=== PATIENT | female | born 1970 | race Two or more races ===

== ENCOUNTER 2016-08-09 19:06 | Emergency (ER) | payer OTHER ==
[2016-08-09] MEDS ORDERED: IBUPROFEN 600 MG TAB PO ONE (19:22)
--- NOTE | 2016-08-09 19:25 | EDPHY ---
H & P Stated Complaint: Headache Time Seen by Provider: 08/09/16 19:25 HPI/ROS: CHIEF COMPLAINT: Headache HISTORY OF PRESENT ILLNESS: The patient presents to the ED with a 2 day history of a right-sided retro-orbital headache. The patient has had a history of this headache intermittently for the past year. The patient has had a negative head CT within the past 3 months for similar symptoms. The patient denies any recent fall or trauma. The patient is not anticoagulated. The patient has been taking ibuprofen at home without improvement. The patient denies any focal numbness or weakness. The patient denies any acute abdominal pain. The patient does have a history of multiple hospitalizations surrounding chronic abdominal pain and postoperative ileus. The patient denies any acute urinary complaints. She has no additional infectious complaints. REVIEW OF SYSTEMS: A comprehensive 10 point review of systems is otherwise negative aside from elements mentioned in the history of present illness. Source: Patient Exam Limitations: No limitations - Personal History Current Tetanus/Diphtheria Vaccine: Yes Current Tetanus Diphtheria and Acellular Pertussis (TDAP): Yes Tetanus Vaccine Date: less than 10 yrs - Medical/Surgical History Hx Asthma: No Hx Chronic Respiratory Disease: No Hx Diabetes: Yes Hx Cardiac Disease: No Hx Renal Disease: No Hx Cirrhosis: No Hx Alcoholism: No Hx HIV/AIDS: No Hx Splenectomy or Spleen Trauma: No Other PMH: Cholecystectomy, sphincterotomy dysfunction, small bowel traction, gastritis, migraines, pancreatitis, - Social History Smoking Status: Never smoked - Physical Exam Exam: General Appearance: Alert, mild discomfort secondary to pain Eyes: Pupils equal and round no pallor or injection ENT, Mouth: Mucous membranes moist Respiratory: There are no retractions, lungs are clear to auscultation Cardiovascular: Regular rate and rhythm Gastrointestinal: Abdomen is soft and nontender, no masses, bowel sounds normal Neurological: Alert and oriented x4, 5/5 strength noted all 4 extremities, cranial nerves 2-12 intact Skin: Warm and dry, no rashes Musculoskeletal: Neck is supple nontender Extremities: symmetrical, full range of motion Constitutional: Initial Vital Signs Temperature (C) 36.9 C 08/09/16 19:20 Heart Rate 92 08/09/16 19:20 Respiratory Rate 14 08/09/16 19:20 Blood Pressure 122/79 H 08/09/16 19:20 O2 Sat (%) 94 08/09/16 19:20 O2 Delivery Mode Room Air Allergies/Adverse Reactions: No Known Allergies Allergy (Verified 07/19/16 19:49) Home Medications: Medication Instructions Recorded Docusate Sodium [Colace] 100 - 200 mg PO BID PRN 08/20/15 Omeprazole 20 mg PO BIDMEAL 08/20/15 metFORMIN HCL [Glucophage] 500 mg PO BIDMEAL 08/20/15 Hydrocodone/APAP 5/325 [[place] 1 - 2 tab PO Q4H PRN #10 tab 01/05/16 5/325] Atorvastatin Calcium 20 mg PO 07/19/16 Cyclobenzaprine [Flexeril 10 MG 10 mg PO TID 07/19/16 (*)] Linagliptin [Tradjenta] 5 mg PO 07/19/16 oxyCODONE IR [Oxycodone Ir (*)] 5 mg PO Q8 PRN #3 tab 07/19/16 Hydrocodone/APAP 5/325 [[place] 1 - 2 each PO Q6 PRN #20 tab 08/09/16 5/325] Ondansetron Odt [Zofran Odt] 4 mg PO Q4PRN PRN #20 tab 08/09/16 Medical Decision Making ED Course/Re-evaluation: The patient presents to the ED with a likely migraine syndrome. She had an IV established. She received IV morphine, Zofran and Dilaudid. She was given oral ibuprofen prior to my evaluation. The patient was re-evaluated by myself at 9:00 p.m.. Her headache has completely resolved. Her neurologic examination remains normal. She has no meningeal symptoms. Discussion: The patient presents to the ED with a fairly typical migraine headache. She has responded to typical therapy. She is not anticoagulated. She has had no fall or trauma. She is comfortable being discharged home and returning for any unimproved symptoms. Given the patient's history of chronic headaches I have referred her to our on-call neurologist for further evaluation as she may benefit from suppressive therapy. 9:30 p.m.: The patient did have some mild hypoxemia from the narcotics she received. She will be observed in the emergency department. 10:00 p.m.: The patient is ambulatory without hypoxemia. She will be discharged home. Differential Diagnosis: Differential diagnosis considered includes migraine syndrome, temporal arteritis , myofascial strain, tension headache - Data Points Medications Given: Discontinued Medications Hydromorphone HCl (Dilaudid) 0.5 mg IVP EDNOW ONE Stop: 08/09/16 19:28 Last Admin: 08/09/16 19:39 Dose: 0.5 mg Hydromorphone HCl (Dilaudid) 0.5 mg IVP EDNOW ONE Stop: 08/09/16 20:19 Last Admin: 08/09/16 20:37 Dose: 0.5 mg Sodium Chloride (Ns) 1,000 mls @ 0 mls/hr IV ONCE ONE PRN Reason: Wide Open Stop: 08/09/16 19:28 Last Admin: 08/09/16 19:39 Dose: 1,000 mls Ibuprofen (Motrin) 600 mg PO EDNOW ONE Stop: 08/09/16 19:23 Last Admin: 08/09/16 19:40 Dose: 600 mg Lorazepam (Ativan Injection) 1 mg IVP EDNOW ONE Stop: 08/09/16 20:19 Last Admin: 08/09/16 20:37 Dose: 1 mg Ondansetron HCl (Zofran) 4 mg IVP EDNOW ONE Stop: 08/09/16 19:28 Last Admin: 08/09/16 19:40 Dose: 4 mg Departure - Departure Disposition: Home, Routine, Self-Care Clinical Impression: Migraine headache Condition: Good Instructions: Migraine Headache (ED) Additional Instructions: 1. Zofran as needed for nausea and recurrent headache. 2. [place] as needed for severe pain 3. Please follow up with the on-call neurologist for further evaluation of your chronic headache. There may be medications to decrease the frequency of the headache pattern your experiencing. 4. Return to the ED for severe headache, fever, neck stiffness or other concerns. Referrals: Otto Holden MD [Medical Doctor] - As per Instructions [facility] [Outside] - As per Instructions Prescriptions: Hydrocodone/APAP 5/325 [[place] 5/325] 1 - 2 each PO Q6 PRN #20 tab PRN Reason: for pain Ondansetron Odt [Zofran Odt] 4 mg PO Q4PRN PRN #20 tab PRN Reason: For Nausea Print Language: German
[2016-08-09] MEDS ORDERED: HYDROmorphONE/DILAUDID 1 MG/ML SYR IVP ONE ×2 (19:27→20:18)
[2016-08-09] MEDS ORDERED: NS 1,000 ML IV ONE (19:27)
[2016-08-09] MEDS ORDERED: ONDANSETRON 4 MG/2 ML VIAL IVP ONE (19:27)
[2016-08-09] MEDS ORDERED: LORazepam 2 MG/ML INJ IVP ONE (20:18)
[2016-08-09 21:28] VITALS: BP 107/71
[2016-08-09 22:01] VITALS: PULSE 77; RESP 12; TEMP 98.8; O2SAT 94
== END 2016-08-09 22:01 | disposition home or self-care (01) ==
DX: G43.909 Migraine, unspecified, not intractable, without status migrainosus (principal); E11.9 Type 2 diabetes mellitus without complications
CPT/HCPCS: 96374; J1170; J2405

== ENCOUNTER 2016-11-04 12:18 | Emergency (ER) | payer MEDICAID, OTHER ==
[2016-11-04] MEDS ORDERED: ONDANSETRON 4 MG/2 ML VIAL ONE (12:41)
[2016-11-04] MEDS ORDERED: NS 1,000 ML IV ONE (12:43)
[2016-11-04] MEDS ORDERED: ONDANSETRON 4 MG/2 ML VIAL IVP ONE (12:43)
[2016-11-04 13:09] LABS: % IMMATURE GRANULYOCYTES 0.4 % (0.0-1.1); ABSOLUTE IMMATURE GRANULOCYTES 0.03 10^3/uL (0.00-0.10); ADD DIFF? NO; ADD MORPH? NO; ADD SCAN? NO; ATYPICAL LYMPHOCYTE FLAG 10 (0-99); FRAGMENT RBC FLAG 0 (0-99); HEMATOCRIT 47.4 % (38.0-47.0); HEMOGLOBIN 16.3 g/dL (12.6-16.3); LEFT SHIFT FLG 0 (0-99); LIPEMIA HEMOLYSIS FLAG 90 (0-99); MEAN CELL HEMOGLOBIN CONCENTR. 34.4 g/dL (32.4-36.7); MEAN CELL VOLUME 87.3 fL (81.5-99.8); MEAN PLATELET VOLUME 11.6 fL (8.7-11.7); PLATELET CLUMPS FLAG 0 (0-99); PLATELET COUNT 236 10^3/uL (150-400); RED BLOOD CELL COUNT 5.43 10^6/uL (4.18-5.33); RED CELL DISTRIBUTION WIDTH 12.5 % (11.5-15.2)
[2016-11-04 13:16] LABS: ANION GAP 13 mEq/L (8-16); CALCIUM 10.1 mg/dL (8.5-10.4); CARBON DIOXIDE 21 mEq/l (22-31); CHLORIDE 108 mEq/L (97-110); CREATININE 0.4 mg/dL (0.6-1.0); GLOMERULAR FILTRATION RATE > 60; GLUCOSE 228 mg/dL (70-100); POTASSIUM 4.1 mEq/L (3.5-5.2); SODIUM 142 mEq/L (134-144)
[2016-11-04] MEDS ORDERED: HYDROmorphONE/DILAUDID 1 MG/ML SYR IVP ONE ×2 (13:25→14:59)
--- NOTE | 2016-11-04 13:41 | EDPHY ---
H & P Time Seen by Provider: 11/04/16 13:02 HPI/ROS: CHIEF COMPLAINT: Nausea, headache, dizziness HISTORY OF PRESENT ILLNESS: 46-year-old female presents to the emergency department by private vehicle complaining of intermittent right-sided headache for last 2 weeks. She denies any known trauma or injury. She states 6 months ago she had a very similar pain and was seen at [facility] and was tried on a medication. She states this medication did not help although she was fine until about 2 weeks ago began having rather abrupt onset of these right-sided intermittent headaches. She describes them as sharp in nature and then it seems to dull a bit. She denies visual changes. Denies neck pain. No fevers or chills. No chest pain or difficulty breathing. She saw [facility] yesterday and she was started on Tegretol. She has taken this medication for only 1 day without relief. REVIEW OF SYSTEMS: Constitutional: No fever, no chills. Eyes: No double or blurry vision. ENT: No sore throat. Respiratory: No cough, no shortness of breath. Cardiac: No chest pain. Gastrointestinal: Nausea. No abdominal pain, vomiting or diarrhea. Genitourinary: No dysuria. Musculoskeletal: No neck or back pain. Skin: No rashes. Neurological: Headache as above. Past Medical/Surgical History: Type 2 diabetes Social History: and lives in [place] Smoking Status: Never smoked Physical Exam: General Appearance: Alert, no distress. 146/95, the heart rate 92, 95% on room air. The patient has reproducible pain with palpation just anterior to the right ear overlying TMJ area. No palpable crepitus or other bony abnormality. Eyes: Pupils equal and round. Extraocular motions are all intact. ENT: Mouth: Mucous membranes moist. Respiratory: No wheezing, rhonchi, or rales, lungs are clear to auscultation. Cardiovascular: Regular rate and rhythm. Gastrointestinal: Abdomen is soft and nontender, no masses, no rebound or guarding, bowel sounds normal. Neurological: Alert and oriented x 3, cranial nerves II through XII grossly intact Skin: Warm and dry, no rashes. Musculoskeletal: Nontender to palpate along the cervical, thoracic or lumbar spine. Neck is supple. Extremities: Full range of motion and no peripheral edema. Psychiatric: Patient is oriented X 3, there is no agitation. Constitutional: Initial Vital Signs Temperature (C) 36.4 C 11/04/16 12:21 Heart Rate 92 11/04/16 12:21 Respiratory Rate 18 11/04/16 12:21 Blood Pressure 146/95 H 11/04/16 12:21 O2 Sat (%) 95 11/04/16 12:21 O2 Delivery Mode Room Air Allergies/Adverse Reactions: No Known Allergies Allergy (Verified 11/04/16 12:20) Home Medications: Medication Instructions Recorded Linagliptin [Tradjenta] 5 mg PO 11/04/16 carBAMazepine [TEGretol (*)] 200 mg PO 11/04/16 Medical Decision Making - Diagnostics Imaging: Imaging Impressions Head CT 11/04/16 13:25 Impression: Normal noncontrast CT of the brain. Results called to. Renata Chicas PA-C at the time of the interpretation. ED Course/Re-evaluation: The patient is Panamanian-speaking only. The team leader surgery, Maria D, was at bedside. Clinically I think this patient likely has trigeminal neuralgia. I doubt she has temporal arteritis. She has had this intermittently for months. She was just recently started on Tegretol at [facility]. I did explain to her that this would take some time for this medication to start working. Her daughter did think that it helped a bit. An IV was established the patient was given 30 mg of Toradol, 10 mg of Decadron IV as well as IV Dilaudid. Her nausea or dizziness had resolved. Her pain was better. She will continue her prescribed pain medication and follow-up with [facility]. CT imaging of the brain was normal. Case was discussed with Dr. Alexei Betancur, secondary supervising physician, who did not directly evaluate the patient but agrees with treatment and plan. Differential Diagnosis: Headache including but not limited to subarachnoid hemorrhage, migraine headache , tension headache and infectious causes such as meningitis, pharyngitis and sinusitis. - Data Points Laboratory Results: Laboratory Results 11/04/16 12:40 11/04/16 12:40 11/04/16 11/04/16 12:40 12:40 WBC 7.34 10^3/uL 10^3/uL (3.80-9.50) RBC 5.43 10^6/uL H 10^6/uL (4.18-5.33) Hgb 16.3 g/dL g/dL (12.6-16.3) Hct 47.4 % H % (38.0-47.0) MCV 87.3 fL fL (81.5-99.8) MCH 30.0 pg pg (27.9-34.1) MCHC 34.4 g/dL g/dL (32.4-36.7) RDW 12.5 % % (11.5-15.2) Plt Count 236 10^3/uL 10^3/uL (150-400) MPV 11.6 fL fL (8.7-11.7) Neut % (Auto) 39.1 % L % (39.3-74.2) Lymph % (Auto) 51.0 % H % (15.0-45.0) Garrett % (Auto) 6.9 % % (4.5-13.0) Eos % (Auto) 1.9 % % (0.6-7.6) Baso % (Auto) 0.7 % % (0.3-1.7) Nucleat RBC Rel Count 0.0 % % (0.0-0.2) Absolute Neuts (auto) 2.87 10^3/uL 10^3/uL (1.70-6.50) Absolute Lymphs (auto) 3.74 10^3/uL H 10^3/uL (1.00-3.00) Absolute Monos (auto) 0.51 10^3/uL 10^3/uL (0.30-0.80) Absolute Eos (auto) 0.14 10^3/uL 10^3/uL (0.03-0.40) Absolute Basos (auto) 0.05 10^3/uL 10^3/uL (0.02-0.10) Absolute Nucleated RBC 0.00 10^3/uL 10^3/uL (0-0.01) Immature Gran % 0.4 % % (0.0-1.1) Immature Gran # 0.03 10^3/uL 10^3/uL (0.00-0.10) Sodium 142 mEq/L mEq/L (134-144) Potassium 4.1 mEq/L mEq/L (3.5-5.2) Chloride 108 mEq/L mEq/L (97-110) Carbon Dioxide 21 mEq/l L mEq/l (22-31) Anion Gap 13 mEq/L mEq/L (8-16) BUN 9 mg/dL mg/dL (7-23) Creatinine 0.4 mg/dL L mg/dL (0.6-1.0) Estimated GFR > 60 Glucose 228 mg/dL H mg/dL (70-100) Calcium 10.1 mg/dL mg/dL (8.5-10.4) Medications Given: Discontinued Medications Dexamethasone (Decadron Injection) 10 mg IVP EDNOW ONE Stop: 11/04/16 14:02 Last Admin: 11/04/16 14:08 Dose: 10 mg Hydromorphone HCl (Dilaudid) 0.5 mg IVP EDNOW ONE Stop: 11/04/16 13:26 Last Admin: 11/04/16 13:32 Dose: 0.5 mg Hydromorphone HCl (Dilaudid) 0.5 mg IVP EDNOW ONE Stop: 11/04/16 15:00 Last Admin: 11/04/16 15:24 Dose: 0.5 mg Sodium Chloride (Ns) 1,000 mls @ 0 mls/hr IV ONCE ONE PRN Reason: Wide Open Stop: 11/04/16 12:44 Last Admin: 11/04/16 12:56 Dose: 1,000 mls Ketorolac Tromethamine (Toradol) 30 mg IVP EDNOW ONE Stop: 11/04/16 14:02 Last Admin: 11/04/16 14:08 Dose: 30 mg Ondansetron HCl (Zofran) 4 mg IVP EDNOW ONE Stop: 11/04/16 12:44 Last Admin: 11/04/16 12:57 Dose: 4 mg Ondansetron HCl (Zofran Odt 4 Mg Prepack#2) 1 btl TAKEHOME EDNOW ONE Stop: 11/04/16 15:59 Last Admin: 11/04/16 15:59 Dose: 1 btl Ondansetron HCl (Zofran Odt 4 Mg Prepack#2) 1 btl TAKEHOME EDNOW ONE Stop: 11/04/16 15:59 Last Admin: 11/04/16 16:00 Dose: Not Given Departure - Departure Disposition: Home, Routine, Self-Care Clinical Impression: Trigeminal neuralgia Headache Qualifiers: Headache type: unspecified Headache chronicity pattern: acute headache Intractability: not intractable Qualified Code(s): R51 - Headache Condition: Good Instructions: Ondansetron (By mouth), Trigeminal Neuralgia (ED), Acute Headache (ED) Additional Instructions: Follow-up with [facility]. Continue Tegretol as prescribed by [facility]. Return to the emergency department if he developed any change in symptoms or if you feel worse in any way. Gabbi fauzia elba de seguimiento con la [facility]. Contine Tegretol esa se le fue recetado por la [facility]. Regrese a la chantal de emergencias si desarrolla cualquier cambio de sntomas o si se siente peor de cualquier manera. Referrals: Jordan Bee DO [Doctor of Osteopathy] - As per Instructions (Neurologist on- call)
[2016-11-04] MEDS ORDERED: DEXAMETHASONE 10 MG/ML VIAL IVP ONE (14:01)
[2016-11-04] MEDS ORDERED: KETOROLAC 30 MG/1 ML SDV IVP ONE (14:01)
[2016-11-04 14:39] VITALS: RESP 16
[2016-11-04] MEDS ORDERED: ONDANSETRON 4MG PREPACK#2 BTL TAKEHOME ONE ×3 (15:56→15:58)
[2016-11-04 16:04] VITALS: BP 113/63; PULSE 80; TEMP 98.6; O2SAT 90
== END 2016-11-04 16:03 | disposition home or self-care (01) ==
DX: G50.0 Trigeminal neuralgia (principal); E11.9 Type 2 diabetes mellitus without complications
CPT/HCPCS: 96374; J1170; J1885; J2405

== ENCOUNTER 2016-12-22 12:26 | Emergency (ER) | payer MEDICAID, OTHER ==
[2016-12-22 12:36] VITALS: BP 118/76; PULSE 74; RESP 20; TEMP 97.9; O2SAT 96
--- NOTE | 2016-12-22 13:02 | EDPHY ---
H & P Stated Complaint: HURT FOOT WHILE ON TREADMILL Time Seen by Provider: 12/22/16 13:00 HPI/ROS: Chief Complaint: Right foot injury HPI: The patient presents to the ED complaining of right foot pain and swelling after she accidentally inverted her foot while running on a treadmill. The patient denies additional pain in her right ankle, knee or hip. She denies acute numbness or weakness. She denies additional traumatic injury. REVIEW OF SYSTEMS: Neuro: no headache, numbness, weakness Musculoskeletal: as above Skin: no abrasion or lacerations Source: Patient - Personal History LMP (Females 10-55): Irregular Tetanus Vaccine Date: less than 10 yrs - Medical/Surgical History Hx Asthma: No Hx Chronic Respiratory Disease: No Hx Diabetes: Yes Hx Cardiac Disease: No Hx Renal Disease: No Hx Cirrhosis: No Hx Alcoholism: No Hx HIV/AIDS: No Hx Splenectomy or Spleen Trauma: No Other PMH: Cholecystectomy, sphincterotomy dysfunction, small bowel traction, gastritis, migraines, pancreatitis, - Social History Smoking Status: Never smoked - Physical Exam Exam: General Appearance: Alert, no distress Head: Atraumatic Neck: Nontender, trachea midline Respiratory: No chest wall tender, subcutaneous air, lungs clear bilaterally Cardiovascular: Regular rate and rhythm Abdomen: Abdomen is soft and nontender, pelvis stable Skin: No lacerations, No abrasion Back: No midline T/L/S pain Extremities: Tenderness to palpation over the right great toe, tenderness to palpation over the dorsum of the right foot Neurological: Sensation intact to light touch throughout the right lower extremity Constitutional: Initial Vital Signs Temperature (C) 36.6 C 12/22/16 12:28 Heart Rate 74 12/22/16 12:28 Respiratory Rate 20 12/22/16 12:28 Blood Pressure 118/76 12/22/16 12:28 O2 Sat (%) 96 12/22/16 12:28 O2 Delivery Mode Room Air Allergies/Adverse Reactions: No Known Allergies Allergy (Verified 11/04/16 12:20) Home Medications: Medication Instructions Recorded Linagliptin [Tradjenta] 5 mg PO 11/04/16 carBAMazepine [TEGretol (*)] 200 mg PO 11/04/16 Medical Decision Making - Diagnostics Imaging Results: Imaging Impressions Foot X-Ray 12/22/16 12:38 Impression: 1. Fracture of the medial base of the distal phalanx of the great toe including a capsular avulsion injury. One might wonder if this toe was transiently dislocated. 2. Possible fracture of the anterior process of the calcaneus. Results called to Dr. Kurt Zhang at 3:45 PM. ED Course/Re-evaluation: The patient presents to the ED with foot pain and is noted to have a 1st metatarsal fracture with possible fracture of the anterior process of the calcaneus. The patient has been placed in a Bustos boot. She is given crutches. She is advised to follow up with our on-call orthopedic surgeon. The patient has advised to be nonweightbearing in use crutches. The patient was given discharge instructions through the electrician helper powerhouse who also established a follow-up appointment with the on-call orthopedic surgeon. Differential Diagnosis: Differential diagnosis considered includes fracture, sprain, dislocation - Data Points Medications Given: Discontinued Medications Ibuprofen (Motrin) 600 mg PO EDNOW ONE Stop: 12/22/16 13:07 Last Admin: 12/22/16 13:09 Dose: 600 mg Departure - Departure Disposition: Home, Routine, Self-Care Clinical Impression: Fracture of metatarsal of right foot, closed Qualifiers: Encounter type: initial encounter Metatarsal bone: first [place] Fracture Type: unspecified configuration Condition: Good Instructions: Foot Fracture in Adults (ED) Additional Instructions: 1. Bustos boot and crutches until seen by Orthopedic surgery. 2. Ice as directed. 3. Take Ibuprofen or Motrin 600 mg by mouth three times a day. 4. Please follow up with orthopedic surgeon you have been referred next week for additional evaluation of your foot fracture. 1. Bota de Akash y kareem hasta que veas el cirujano ortopedico. 2. Usar hielo esa directado. 3. Noris Ibuprofen o Motrin 600 mg por la boca jennifer veces al kelin con comida. 4. Por favor ir a jennifer de seguimiento con el cirujano ortopedico a quien te hemos referido la semana que viene para fauzia evaluacion adicional de la fractura de tu pie. Jennifer el lunes el con el Dr. Langford en [address] [place] [address] en [place] Llegar a las 2:45pm para llenar papeles y la jennifer a las 3:00pm. Telefono de la oficina es [phone]. Referrals: Benigno Barone MD [Medical Doctor] - As per Instructions
[2016-12-22] MEDS ORDERED: IBUPROFEN 600 MG TAB PO ONE (13:06)
== END 2016-12-22 14:37 | disposition home or self-care (01) ==
DX: S92.311A Displaced fracture of first metatarsal bone, right foot, initial encounter for closed fracture (principal); E11.9 Type 2 diabetes mellitus without complications; X50.0XXA Overexertion from strenuous movement or load, initial encounter; Y92.89 Other specified places as the place of occurrence of the external cause; Y99.8 Other external cause status; Y93.02 Activity, running
CPT/HCPCS: L4386

== ENCOUNTER 2016-12-30 14:13 | Emergency (ER) | payer OTHER ==
[2016-12-30 14:21] VITALS: BP 122/76; PULSE 82; RESP 16; TEMP 97.7; O2SAT 95
--- NOTE | 2016-12-30 15:18 | EDPHY ---
H & P Time Seen by Provider: 12/30/16 15:07 HPI/ROS: CHIEF COMPLAINT: Pain in the right big toe HISTORY OF PRESENT ILLNESS: Patient was seen in our emergency department on December 22 and was diagnosed with a fracture in her right great toe. She continues to walk on it and where an orthopedic boot but says it is still painful. She was seen this past Sunday by Orthopedics in the office and was referred to Dr. Barone when she was discharged. Taking ibuprofen without good relief. Afraid to use ice because her skin discoloration turned a little bit purple on the toe when she does. REVIEW OF SYSTEMS: Pain radiates up into the knee and hip and she has a little discomfort in the remainder of the leg. Wearing a boot but no chest pain or shortness of breath PAST MEDICAL HISTORY: Includes cholecystectomy, migraines, pancreatitis, C- section Social history: Here with family, history and exam through electrical cad designer General Appearance: Alert and conversant, cooperative. Normal nontender Achilles and ankle. Tib-fib nontender compartments are soft. Thigh compartments are soft and normal range of motion of the right knee and hip. She has some swelling and tenderness on the right great toe. Her x-ray showed possible calcaneal injury but she does not have any heel tenderness at this time. Skin intact. Normal motor sensory and capillary refill. Emergency Department course/MDM: Discussed with the patient what to expect for healing that it will be prolonged and likely painful for several weeks. She continues to wear Hazel Hurst boot. I will write her a prescription for [place] and she needs to follow up with Orthopedics again in 2 weeks. Smoking Status: Never smoked Constitutional: Initial Vital Signs Temperature (C) 36.5 C 12/30/16 14:13 Heart Rate 82 12/30/16 14:13 Respiratory Rate 16 12/30/16 14:13 Blood Pressure 122/76 H 12/30/16 14:13 O2 Sat (%) 95 12/30/16 14:13 O2 Delivery Mode Room Air Allergies/Adverse Reactions: No Known Allergies Allergy (Verified 11/04/16 12:20) Home Medications: Medication Instructions Recorded Linagliptin [Tradjenta] 5 mg PO 11/04/16 carBAMazepine [TEGretol (*)] 200 mg PO 11/04/16 Hydrocodone/APAP 5/325 [[place] 1 tab PO Q4-6PRN PRN #11 tab 12/30/16 5/325] MDM/Departure - Depart Disposition: Home, Routine, Self-Care Clinical Impression: Fracture of great toe, right, closed Qualifiers: Encounter type: subsequent encounter Phalanx: unspecified phalanx Condition: Good Instructions: Toe Fracture (ED) Additional Instructions: Continue to wear the boot is your instructed. Follow-up with orthopedic clinic again in 2 weeks. Contine usando la bota esa se le fue instruido. Gabbi fauzia elba de seguimiento con la clnica ortopdica de nuevo en 2 semanas. Prescriptions: Hydrocodone/APAP 325 [[place] 5325] 1 tab PO Q4-6PRN PRN #11 tab PRN Reason: For Pain Referrals: Benigno Barone MD [Medical Doctor] - As per Instructions
== END 2016-12-30 15:45 | disposition home or self-care (01) ==
DX: S92.401D Displaced unspecified fracture of right great toe, subsequent encounter for fracture with routine healing (principal); X58.XXXD Exposure to other specified factors, subsequent encounter

== ENCOUNTER 2017-04-29 01:42 | Emergency (ER) | payer OTHER ==
--- NOTE | 2017-04-29 01:47 | EDPHY ---
H & P HPI/ROS: HPI CHIEF COMPLAINT: Headache HISTORY OF PRESENT ILLNESS: Patient very pleasant 46-year-old female, history of migraine headache she presents emergency room headache x7 days. Not sudden onset. Not thunderclap. She states she has had a migraine headache for the past week. Global headache. Throbbing in nature. With associated nausea but no vomiting. Photophobia present. No neck pain. No neck stiffness. No fever. No meningeal signs. She tells me this feels exactly like her previous migraines. Son at bedside for translation. She is [place]-speaking only. She has normal neurological exam here in emergency room. 2 Tylenol Motrin without much relief. Past Medical History: Significant medical history for migraine headaches, diabetes, small-bowel obstruction, sphincter of Oddi dysfunction, gallbladder disease Past Surgical History: Cholecystectomy Social History: Denies daily use drugs alcohol tobacco products. [place]ican- speaking only. Family History: Noncontributory. ROS REVIEW OF SYSTEMS: A comprehensive 10 point review of systems is otherwise negative aside from elements mentioned in the history of present illness. Exam Constitutional appears well nontoxic triage nursing summary reviewed, vital signs reviewed, awake/alert. Eyes normal conjunctivae and sclera, EOMI, PERRLA. HENT normal inspection, atraumatic, moist mucus membranes, no epistaxis, neck supple/ no meningismus, no raccoon eyes. Respiratory clear to auscultation bilaterally, normal breath sounds, no respiratory distress, no wheezing. Cardiovascular rate normal, regular rhythm, no murmur, no edema, distal pulses normal. Gastrointestinal soft, non-tender, no rebound, no guarding, normal bowel sounds, no distension, no pulsatile mass. Genitourinary no CVA tenderness. Musculoskeletal no midline vertebral tenderness, full range of motion, no calf swelling, no tenderness of extremities, no meningismus, good pulses, neurovascularly intact. Skin pink, warm, & dry, no rash, skin atraumatic. Neurologic awake, alert and oriented x 3, AAOx3, moves all 4 extremities equally, motor intact, sensory intact, CN II-XII intact, normal cerebellar, normal vision, normal speech. Psychiatric normal mood/affect. Heme/Lymph/Immune no lymphadenopathy. Differential Diagnosis: Includes but is not limited to in a particular order, migraine headache, tension headache, cluster headache, doubt intracranial bleed. Patient has normal neurological exam. Medical Decision Making: Plan for this patient IV establishment IV fluid bolus, abortive medications for migraine headache, CT head without contrast. Re-evaluate. Re-evaluation: CT scan of the head without IV contrast The results of the study are Negative for disease process The study was read by Dr. Alvarez. I viewed the images myself on the PACS system. [id number]: Re-evaluation this time this patient is sleeping resting comfortably in no acute distress. She feels much better after migraine cocktail medicine. She states her headache is currently 0/10. Completely resolved. Her CT scan of her head was unremarkable. Vital signs are stable. She is comfortable going home. She needs return emergency room she develops worsening symptoms questions concerns. Neurological exam is unremarkable. No focal neuro deficits. No evidence of bleed or tumor. Return if worse return precautions given. She understands. Source: Patient - Personal History Tetanus Vaccine Date: less than 10 yrs - Medical/Surgical History Hx Asthma: No Hx Chronic Respiratory Disease: No Hx Diabetes: Yes Hx Cardiac Disease: No Hx Renal Disease: No Hx Cirrhosis: No Hx Alcoholism: No Hx HIV/AIDS: No Hx Splenectomy or Spleen Trauma: No Other PMH: Cholecystectomy, sphincterotomy dysfunction, small bowel traction, gastritis, migraines, pancreatitis, - Social History Smoking Status: Never smoked Constitutional: Initial Vital Signs Temperature (C) 36.4 C 04/29/17 01:45 Heart Rate 91 04/29/17 01:45 Respiratory Rate 16 04/29/17 01:45 Blood Pressure 138/81 H 04/29/17 01:45 O2 Sat (%) 96 04/29/17 01:45 O2 Delivery Mode Room Air Allergies/Adverse Reactions: No Known Allergies Allergy (Verified 11/04/16 12:20) Home Medications: Medication Instructions Recorded Linagliptin [Tradjenta] 5 mg PO 11/04/16 carBAMazepine [TEGretol (*)] 200 mg PO 11/04/16 Hydrocodone/APAP 5/325 [[place] 1 tab PO Q4-6PRN PRN #11 tab 12/30/16 5/325] Medical Decision Making - Data Points Laboratory Results: Laboratory Results 04/29/17 01:58 04/29/17 01:58 04/29/17 04/29/17 01:58 01:58 WBC 8.23 10^3/uL 10^3/uL (3.80-9.50) RBC 5.17 10^6/uL 10^6/uL (4.18-5.33) Hgb 15.7 g/dL g/dL (12.6-16.3) Hct 45.8 % % (38.0-47.0) MCV 88.6 fL fL (81.5-99.8) MCH 30.4 pg pg (27.9-34.1) MCHC 34.3 g/dL g/dL (32.4-36.7) RDW 12.8 % % (11.5-15.2) Plt Count 214 10^3/uL 10^3/uL (150-400) MPV 11.1 fL fL (8.7-11.7) Neut % (Auto) 33.4 % L % (39.3-74.2) Lymph % (Auto) 53.6 % H % (15.0-45.0) [place] % (Auto) 8.7 % % (4.5-13.0) Eos % (Auto) 3.5 % % (0.6-7.6) Baso % (Auto) 0.6 % % (0.3-1.7) Nucleat RBC Rel Count 0.0 % % (0.0-0.2) Absolute Neuts (auto) 2.74 10^3/uL 10^3/uL (1.70-6.50) Absolute Lymphs (auto) 4.41 10^3/uL H 10^3/uL (1.00-3.00) Absolute Monos (auto) 0.72 10^3/uL 10^3/uL (0.30-0.80) Absolute Eos (auto) 0.29 10^3/uL 10^3/uL (0.03-0.40) Absolute Basos (auto) 0.05 10^3/uL 10^3/uL (0.02-0.10) Absolute Nucleated RBC 0.00 10^3/uL 10^3/uL (0-0.01) Immature Gran % 0.2 % % (0.0-1.1) Immature Gran # 0.02 10^3/uL 10^3/uL (0.00-0.10) Sodium 142 mEq/L mEq/L (134-144) Potassium 3.7 mEq/L mEq/L (3.5-5.2) Chloride 110 mEq/L mEq/L (97-110) Carbon Dioxide 22 mEq/l mEq/l (22-31) Anion Gap 10 mEq/L mEq/L (8-16) BUN 16 mg/dL mg/dL (7-23) Creatinine 0.6 mg/dL mg/dL (0.6-1.0) Estimated GFR > 60 Glucose 147 mg/dL H mg/dL (70-100) Calcium 10.8 mg/dL H mg/dL (8.5-10.4) Phosphorus 3.1 mg/dL mg/dL (2.5-4.5) Medications Given: Discontinued Medications Dexamethasone (Decadron Injection) 10 mg IVP EDNOW ONE Stop: 04/29/17 01:54 Last Admin: 04/29/17 02:00 Dose: 10 mg Diphenhydramine HCl (Benadryl Injection) 50 mg IVP EDNOW ONE Stop: 04/29/17 01:54 Last Admin: 04/29/17 02:00 Dose: 50 mg Sodium Chloride (Ns) 1,000 mls @ 0 mls/hr IV ONCE ONE; Wide Open PRN Reason: Protocol Stop: 04/29/17 01:54 Last Admin: 04/29/17 01:59 Dose: 1,000 mls Ketorolac Tromethamine (Toradol) 30 mg IVP EDNOW ONE Stop: 04/29/17 01:54 Last Admin: 04/29/17 02:00 Dose: 30 mg Metoclopramide HCl (Reglan Injection) 10 mg IVP EDNOW ONE Stop: 04/29/17 01:54 Last Admin: 04/29/17 02:01 Dose: 10 mg Departure - Departure Disposition: Home, Routine, Self-Care Clinical Impression: Migraine headache Qualifiers: Migraine type: other Status migrainosus presence: without status migrainosus Intractability: not intractable Qualified Code(s): G43.809 - Other migraine, not intractable, without status migrainosus Condition: Good Instructions: Migraine Headache (ED) Additional Instructions: 1. Please follow up with her primary care doctor. 2. Return emergency room if you have any worsening symptoms questions or concerns includes worsening headache, fever, vomiting. Referrals: [facility] [Other] - As per Instructions
[2017-04-29] MEDS ORDERED: NS 1,000 ML IV ONE (01:53)
[2017-04-29] MEDS ORDERED: DEXAMETHASONE 10 MG/ML VIAL IVP ONE (01:53)
[2017-04-29] MEDS ORDERED: KETOROLAC 30 MG/1 ML SDV IVP ONE (01:53)
[2017-04-29] MEDS ORDERED: METOCLOPRAMIDE 10 MG/2 ML VIAL IVP ONE (01:53)
[2017-04-29 02:05] LABS: % IMMATURE GRANULYOCYTES 0.2 % (0.0-1.1); ABSOLUTE IMMATURE GRANULOCYTES 0.02 10^3/uL (0.00-0.10); ADD DIFF? NO; ADD MORPH? NO; ADD SCAN? NO; ATYPICAL LYMPHOCYTE FLAG 0 (0-99); FRAGMENT RBC FLAG 0 (0-99); HEMATOCRIT 45.8 % (38.0-47.0); HEMOGLOBIN 15.7 g/dL (12.6-16.3); LEFT SHIFT FLG 0 (0-99); LIPEMIA HEMOLYSIS FLAG 90 (0-99); MEAN CELL HEMOGLOBIN 30.4 pg (27.9-34.1); MEAN CELL HEMOGLOBIN CONCENTR. 34.3 g/dL (32.4-36.7); MEAN CELL VOLUME 88.6 fL (81.5-99.8); MEAN PLATELET VOLUME 11.1 fL (8.7-11.7); PLATELET CLUMPS FLAG 0 (0-99); PLATELET COUNT 214 10^3/uL (150-400); RED BLOOD CELL COUNT 5.17 10^6/uL (4.18-5.33); RED CELL DISTRIBUTION WIDTH 12.8 % (11.5-15.2)
[2017-04-29 02:19] LABS: ANION GAP 10 mEq/L (8-16); CALCIUM 10.8 mg/dL (8.5-10.4); CARBON DIOXIDE 22 mEq/l (22-31); CHLORIDE 110 mEq/L (97-110); CREATININE 0.6 mg/dL (0.6-1.0); GLOMERULAR FILTRATION RATE > 60; GLUCOSE 147 mg/dL (70-100); POTASSIUM 3.7 mEq/L (3.5-5.2); SODIUM 142 mEq/L (134-144)
[2017-04-29 04:12] VITALS: BP 111/67; PULSE 78; RESP 16; TEMP 98.1; O2SAT 97
== END 2017-04-29 04:12 | disposition home or self-care (01) ==
DX: G43.809 Other migraine, not intractable, without status migrainosus (principal); E11.9 Type 2 diabetes mellitus without complications; E86.9 Volume depletion, unspecified
CPT/HCPCS: 96374; J1100; J1200; J1885; J2765

== ENCOUNTER 2017-07-26 14:34 | Emergency (ER) | payer OTHER ==
[2017-07-26] MEDS ORDERED: ONDANSETRON 4 MG/2 ML VIAL ONE (15:10)
[2017-07-26] MEDS ORDERED: ONDANSETRON 4 MG/2 ML VIAL IVP ONE (15:20)
[2017-07-26] MEDS ORDERED: NS 1,000 ML IV ONE ×2 (15:21→15:55)
[2017-07-26 15:43] LABS: PLATELET COUNT 196 10^3/uL (150-400)
--- NOTE | 2017-07-26 15:58 | EDPHY ---
H & P Time Seen by Provider: 07/26/17 15:00 HPI/ROS: CHIEF COMPLAINT: Abdominal pain HISTORY OF PRESENT ILLNESS: The patient is a 38-year-old female who presents to the emergency department with abdominal pain since this morning. Patient had 1 previous episode last week but her symptoms resolved. She complains of right lower abdominal pain that this is not radiate. It is worse with movement. She describes it as moderate to severe. She has had nausea with no vomiting. She reports a subjective fever. She has had no appetite. Mild dysuria. No frequency. No hematuria REVIEW OF SYSTEMS: My complete review of systems is negative except as mentioned in the HPI. Past Medical/Surgical History: Includes migraines, gastritis, pancreatitis, diabetes Past surgical history: Cholecystectomy, sphincterotomy, x3 Social history: Patient does not smoke Smoking Status: Never smoked Physical Exam: 36.4, 124/72, 96, 16, 98% on room air GENERAL: Well-appearing, in no acute distress, alert. HEENT: Eyes normal to inspection, normal pharynx, no signs of dehydration. NECK: No thyromegaly, no lymphadenopathy, supple. RESPIRATORY: Clear to auscultation bilaterally, no rales, rhonchi or wheezing. CVS: Regular rate and rhythm, no rubs, murmurs, or gallops. ABDOMEN: Soft, nontender, nondistended, no organomegaly. BACK: Normal to inspection, no CVA tenderness. SKIN: Normal color, no rash, warm, dry. No pallor. EXTREMITIES: No pedal edema, no calf tenderness, no Homans sign or cords, no joint swelling. NEURO/PSYCH: Alert and oriented x3, normal mood and affect, normal motor sensory exam. No obvious cranial nerve deficit. Constitutional: Initial Vital Signs Temperature (C) 36.4 C 07/26/17 14:39 Heart Rate 96 07/26/17 14:39 Respiratory Rate 16 07/26/17 14:39 Blood Pressure 124/72 H 07/26/17 14:39 O2 Sat (%) 98 07/26/17 14:39 O2 Delivery Mode Room Air Allergies/Adverse Reactions: No Known Allergies Allergy (Verified 07/26/17 14:37) Home Medications: Medication Instructions Recorded Linagliptin [Tradjenta] 5 mg PO 11/04/16 GLIPIZIDE 07/26/17 Medical Decision Making - Diagnostics Imaging Results: Imaging Impressions Abdomen CT 07/26/17 15:55 Impression: 1. Mild constipation. 2. No CT evidence of appendicitis, abscess or bowel obstruction. 3. Prior cholecystectomy without biliary ductal dilation or ascites. 4. No evidence of diverticulitis or obstruction. 5. No definite adnexal masses or free fluid in the pelvis. 6. Benign old calcified mesenteric lymph nodes without suspicious adenopathy. Findings and recommendations discussed with Emergency Department physician, Kenyatta Durand at 1732 hour, 07/26/2017. Final report concurs with initial preliminary interpretation. ADDENDUM: 07/26/172004 Impression: No nephrolithiasis or urinary tract obstruction. Findings and recommendations discussed with Emergency Department physician, Kenyatta Durand M.D., at 1933 hours, on July 26, 2017. Final report concurs with initial preliminary interpretation. Pelvic/Renal Ultrasound 07/26/17 19:32 Impression: Normal ultrasound pelvis. Findings and recommendations discussed with Emergency Department physician, Kenyatta Durand M.D., at 2047 hours, on July 26, 2017. Final report concurs with initial preliminary interpretation. ED Course/Re-evaluation: In the emergency department I discussed possible etiologies with the patient. Answered all her questions. software sales consultant was used for all interactions. An IV was placed. Laboratory studies were obtained. I ordered CT the abdomen and pelvis. Chemistry panel CBC are unremarkable. negative. UA positive for red cells. CT abdomen/pelvis: Please refer the dictated report. The patient has a normal appearing appendix. There is no other abnormality noted. I rechecked the patient. She still was having abdominal discomfort. Because of this and ultrasound was ordered. I discussed the plan with Dr. Shell. Patient was informed of the plan. Ultrasound: Please refer the dictated report. Normal ovary. No acute disease noted. 2109: I rechecked the patient. She was lying comfortable in the. I discussed all results. She was given warnings prior to leaving. She will return with worsening symptoms. Differential Diagnosis: My differential includes but is not limited to appendicitis, diverticulitis, diverticular abscess, volvulus, intussusception, small-bowel obstruction, ovarian cyst, ovarian torsion, , ectopic - Data Points Laboratory Results: Laboratory Results 07/26/17 15:24 07/26/17 15:24 07/26/17 07/26/17 07/26/17 18:39 15:24 15:24 WBC RBC Hgb Hct MCV MCH MCHC RDW Plt Count MPV Neut % (Auto) Lymph % (Auto) [place] % (Auto) Eos % (Auto) Baso % (Auto) Nucleat RBC Rel Count Absolute Neuts (auto) Absolute Lymphs (auto) Absolute Monos (auto) Absolute Eos (auto) Absolute Basos (auto) Absolute Nucleated RBC Immature Gran % Immature Gran # Sodium 143 mEq/L mEq/L (134-144) Potassium 4.6 mEq/L mEq/L (3.5-5.2) Chloride 107 mEq/L mEq/L (97-110) Carbon Dioxide 23 mEq/l mEq/l (22-31) Anion Gap 13 mEq/L mEq/L (8-16) BUN 11 mg/dL mg/dL (7-23) Creatinine 0.5 mg/dL L mg/dL (0.6-1.0) Estimated GFR > 60 Glucose 104 mg/dL H mg/dL (70-100) Calcium 10.5 mg/dL H mg/dL (8.5-10.4) Beta HCG, Qual NEGATIVE Urine Color YELLOW Urine Appearance CLEAR Urine pH 6.0 (5.0-7.5) Ur Specific [place] > 1.035 H (1.002-1.030) Urine Protein NEGATIVE (NEGATIVE) Urine Ketones NEGATIVE (NEGATIVE) Urine Blood NEGATIVE (NEGATIVE) Urine Nitrate NEGATIVE (NEGATIVE) Urine Bilirubin NEGATIVE (NEGATIVE) Urine Urobilinogen 2.0 EU H EU (0.2-1.0) Ur Leukocyte Esterase NEGATIVE (NEGATIVE) Urine RBC 10-15 /hpf H /hpf (0-3) Urine WBC 1-3 /hpf /hpf (0-3) Ur Epithelial Cells TRACE /lpf /lpf (NONE-1+) Urine Glucose NEGATIVE (NEGATIVE) 07/26/17 15:24 WBC 8.58 10^3/uL 10^3/uL (3.80-9.50) RBC 5.40 10^6/uL H 10^6/uL (4.18-5.33) Hgb 16.8 g/dL H g/dL (12.6-16.3) Hct 47.8 % H % (38.0-47.0) MCV 88.5 fL fL (81.5-99.8) MCH 31.1 pg pg (27.9-34.1) MCHC 35.1 g/dL g/dL (32.4-36.7) RDW 13.3 % % (11.5-15.2) Plt Count 196 10^3/uL 10^3/uL (150-400) MPV 11.2 fL fL (8.7-11.7) Neut % (Auto) 64.8 % % (39.3-74.2) Lymph % (Auto) 24.8 % % (15.0-45.0) [place] % (Auto) 7.5 % % (4.5-13.0) Eos % (Auto) 2.1 % % (0.6-7.6) Baso % (Auto) 0.3 % % (0.3-1.7) Nucleat RBC Rel Count 0.0 % % (0.0-0.2) Absolute Neuts (auto) 5.56 10^3/uL 10^3/uL (1.70-6.50) Absolute Lymphs (auto) 2.13 10^3/uL 10^3/uL (1.00-3.00) Absolute Monos (auto) 0.64 10^3/uL 10^3/uL (0.30-0.80) Absolute Eos (auto) 0.18 10^3/uL 10^3/uL (0.03-0.40) Absolute Basos (auto) 0.03 10^3/uL 10^3/uL (0.02-0.10) Absolute Nucleated RBC 0.00 10^3/uL 10^3/uL (0-0.01) Immature Gran % 0.5 % % (0.0-1.1) Immature Gran # 0.04 10^3/uL 10^3/uL (0.00-0.10) Sodium Potassium Chloride Carbon Dioxide Anion Gap BUN Creatinine Estimated GFR Glucose Calcium Beta HCG, Qual Urine Color Urine Appearance Urine pH Ur Specific [place] Urine Protein Urine Ketones Urine Blood Urine Nitrate Urine Bilirubin Urine Urobilinogen Ur Leukocyte Esterase Urine RBC Urine WBC Ur Epithelial Cells Urine Glucose Medications Given: Discontinued Medications Fentanyl (Sublimaze) 50 mcg IVP EDNOW ONE Stop: 07/26/17 19:39 Last Admin: 07/26/17 19:58 Dose: 50 mcg Sodium Chloride (Ns) 1,000 mls @ 0 mls/hr IV ONCE ONE PRN Reason: Wide Open Stop: 07/26/17 15:22 Last Admin: 07/26/17 15:21 Dose: 1,000 mls Sodium Chloride (Ns) 1,000 mls @ 0 mls/hr IV EDNOW ONE; Wide Open PRN Reason: Protocol Stop: 07/26/17 15:56 Last Admin: 07/26/17 16:10 Dose: 1,000 mls Ketorolac Tromethamine (Toradol) 30 mg IVP EDNOW ONE Stop: 07/26/17 17:51 Last Admin: 07/26/17 17:53 Dose: 30 mg Morphine Sulfate (Morphine) 4 mg IVP EDNOW ONE Stop: 07/26/17 15:56 Last Admin: 07/26/17 16:07 Dose: 4 mg Ondansetron HCl (Zofran) 4 mg IVP EDNOW ONE Stop: 07/26/17 15:21 Last Admin: 07/26/17 15:21 Dose: 4 mg Departure - Departure Disposition: Home, Routine, Self-Care Clinical Impression: Abdominal pain Qualifiers: Abdominal location: generalized Qualified Code(s): R10.84 - Generalized abdominal pain Condition: Good Instructions: Acute Abdominal Pain (ED) Additional Instructions: Return with increasing abdominal pain, vomiting, persistent fever, or any other concerns. Referrals: [facility] [Other] - 1-2 days without fail
[2017-07-26 16:39] VITALS: RESP 18
[2017-07-26] MEDS ORDERED: IOPAMIDOL (ISOVUE-300) 100 ML BTL ONE (16:52)
[2017-07-26] MEDS ORDERED: KETOROLAC 30 MG/1 ML SDV IVP ONE (17:50)
[2017-07-26 18:33] VITALS: PULSE 95
[2017-07-26] MEDS ORDERED: fentaNYL 100 MCG/2 ML INJ IVP ONE (19:38)
[2017-07-26 21:09] VITALS: BP 107/67; TEMP 98.2; O2SAT 95
[2017-07-26] MEDS ORDERED: ONDANSETRON 4MG PREPACK#2 BTL TAKEHOME ONE (21:14)
[2017-07-26] MEDS ORDERED: HYDROCOD/APAP 5/325 PREPACK#6 BTL TAKEHOME ONE (21:14)
== END 2017-07-26 21:41 | disposition home or self-care (01) ==
DX: R10.84 Generalized abdominal pain (principal); E86.9 Volume depletion, unspecified; Z90.49 Acquired absence of other specified parts of digestive tract
CPT/HCPCS: 96374; J1885; J2405; J3010; Q9967

== ENCOUNTER 2017-09-19 22:23 | Emergency (ER) | payer OTHER ==
--- NOTE | 2017-09-19 22:32 | EDPHY ---
H & P Stated Complaint: ANXIETY OVER EYE SURGERY NEXT WEEK. RUQ PAIN Time Seen by Provider: 09/19/17 22:30 HPI/ROS: HPI CHIEF COMPLAINT: Anxiety attack HISTORY OF PRESENT ILLNESS: Patient very pleasant 47-year-old female well known to myself she has a history of diabetes, cholecystectomy, small-bowel obstruction, she presents emergency room by private vehicle with her son at bedside. She is [place]ian-speaking only her son speaks fluent Frisian and [place]ian. She reports that she is due to have cataract surgery coming up and she has been very stressed and anxious about this she has to pay [id number] close to 5000 dollars for cataract surgery. This is causing her a great deal of stress. She states she became very anxious about this tonight. And having a full-blown anxiety attack. She presents by private vehicle very anxious and shaking. Denies chest pain or shortness of breath Past Medical History: Gallbladder disease, diabetes, small-bowel obstruction, sphincter of Oddi dysfunction Past Surgical History: Cholecystectomy Social History: Denies drugs alcohol tobacco per Family History: Noncontributory ROS REVIEW OF SYSTEMS: A comprehensive 10 point review of systems is otherwise negative aside from elements mentioned in the history of present illness. Exam Constitutional very anxious triage nursing summary reviewed, vital signs reviewed, awake/alert. Eyes normal conjunctivae and sclera, EOMI, PERRLA. HENT normal inspection, atraumatic, moist mucus membranes, no epistaxis, neck supple/ no meningismus, no raccoon eyes. Respiratory clear to auscultation bilaterally, normal breath sounds, no respiratory distress, no wheezing. Cardiovascular rate normal, regular rhythm, no murmur, no edema, distal pulses normal. Gastrointestinal soft, non-tender, no rebound, no guarding, normal bowel sounds, no distension, no pulsatile mass. Genitourinary no CVA tenderness. Musculoskeletal no midline vertebral tenderness, full range of motion, no calf swelling, no tenderness of extremities, no meningismus, good pulses, neurovascularly intact. Skin pink, warm, & dry, no rash, skin atraumatic. Neurologic awake, alert and oriented x 3, AAOx3, moves all 4 extremities equally, motor intact, sensory intact, CN II-XII intact, normal cerebellar, normal vision, normal speech. Psychiatric anxious, normal mood/affect. Heme/Lymph/Immune no lymphadenopathy. Differential Diagnosis: Includes but is not limited to in a particular order acute anxiety, panic attack, acute stress response. Medical Decision Making: Plan for this patient IV establishment, 1 mg IV Ativan , check basic blood work, and re-evaluate Re-evaluation: 1213: Patient re-evaluate this time she is resting comfortably infectious sleeping. She feels much better after 1 mg IV Ativan. Her anxiety is well controlled. She would like to go home her son and daughter at bedside and they would like to go home. Return precautions discussed. Vitals are stable this time. Blood work is unremarkable. Clinical condition consistent with acute anxiety attack. Source: Patient - Personal History LMP (Females 10-55): Post Menopausal Current Tetanus/Diphtheria Vaccine: Yes Current Tetanus Diphtheria and Acellular Pertussis (TDAP): Yes Tetanus Vaccine Date: less than 10 yrs - Medical/Surgical History Hx Asthma: No Hx Chronic Respiratory Disease: No Hx Diabetes: Yes Hx Cardiac Disease: No Hx Renal Disease: No Hx Cirrhosis: No Hx Alcoholism: No Hx HIV/AIDS: No Hx Splenectomy or Spleen Trauma: No Other PMH: Cholecystectomy, sphincterotomy dysfunction, small bowel traction, gastritis, migraines, pancreatitis, - Social History Smoking Status: Never smoked Constitutional: Initial Vital Signs Temperature (C) 36.8 C 09/19/17 22:26 Heart Rate 110 H 09/19/17 22:26 Respiratory Rate 18 09/19/17 22:26 Blood Pressure 137/87 H 09/19/17 22:26 O2 Sat (%) 96 09/19/17 22:26 O2 Delivery Mode Room Air Allergies/Adverse Reactions: No Known Allergies Allergy (Verified 09/19/17 22:29) Home Medications: Medication Instructions Recorded Linagliptin [Tradjenta] 5 mg PO 11/04/16 GLIPIZIDE 07/26/17 Ondansetron HCl Pf [Zofran 4 mg 09/19/17 Inj (*)] busPIRone [Buspar (*)] 15 mg PO TID 09/19/17 Medical Decision Making - Data Points Laboratory Results: Laboratory Results 09/19/17 22:40 09/19/17 22:40 09/19/17 09/19/17 22:40 22:40 WBC 8.90 10^3/uL 10^3/uL (3.80-9.50) RBC 5.48 10^6/uL H 10^6/uL (4.18-5.33) Hgb 16.8 g/dL H g/dL (12.6-16.3) Hct 47.8 % H % (38.0-47.0) MCV 87.2 fL fL (81.5-99.8) MCH 30.7 pg pg (27.9-34.1) MCHC 35.1 g/dL g/dL (32.4-36.7) RDW 13.0 % % (11.5-15.2) Plt Count 239 10^3/uL 10^3/uL (150-400) MPV 11.2 fL fL (8.7-11.7) Neut % (Auto) 46.7 % % (39.3-74.2) Lymph % (Auto) 41.9 % % (15.0-45.0) [place] % (Auto) 8.1 % % (4.5-13.0) Eos % (Auto) 2.2 % % (0.6-7.6) Baso % (Auto) 0.9 % % (0.3-1.7) Nucleat RBC Rel Count 0.0 % % (0.0-0.2) Absolute Neuts (auto) 4.15 10^3/uL 10^3/uL (1.70-6.50) Absolute Lymphs (auto) 3.73 10^3/uL H 10^3/uL (1.00-3.00) Absolute Monos (auto) 0.72 10^3/uL 10^3/uL (0.30-0.80) Absolute Eos (auto) 0.20 10^3/uL 10^3/uL (0.03-0.40) Absolute Basos (auto) 0.08 10^3/uL 10^3/uL (0.02-0.10) Absolute Nucleated RBC 0.00 10^3/uL 10^3/uL (0-0.01) Immature Gran % 0.2 % % (0.0-1.1) Immature Gran # 0.02 10^3/uL 10^3/uL (0.00-0.10) Sodium 142 mEq/L mEq/L (135-145) Potassium 3.8 mEq/L mEq/L (3.5-5.2) Chloride 108 mEq/L mEq/L (97-110) Carbon Dioxide 19 mEq/l L mEq/l (22-31) Anion Gap 15 mEq/L mEq/L (8-16) BUN 10 mg/dL mg/dL (7-23) Creatinine 0.6 mg/dL mg/dL (0.6-1.0) Estimated GFR > 60 Glucose 118 mg/dL H mg/dL (70-100) Calcium 11.2 mg/dL H mg/dL (8.5-10.4) Phosphorus 3.0 mg/dL mg/dL (2.5-4.5) Medications Given: Discontinued Medications Sodium Chloride (Ns) 1,000 mls @ 0 mls/hr IV EDNOW ONE; Wide Open PRN Reason: Protocol Stop: 09/19/17 22:36 Last Admin: 09/19/17 22:40 Dose: 1,000 mls Lorazepam (Ativan Injection) 1 mg IVP EDNOW ONE Stop: 09/19/17 22:37 Last Admin: 09/19/17 22:40 Dose: 1 mg Departure - Departure Disposition: Home, Routine, Self-Care Clinical Impression: Anxiety attack Condition: Good Instructions: Anxiety (ED) Referrals: Yamilka Rg [Primary Care Provider] - As per Instructions
[2017-09-19] MEDS ORDERED: NS 1,000 ML IV ONE (22:35)
[2017-09-19] MEDS ORDERED: LORazepam 2 MG/ML INJ IVP ONE (22:36)
[2017-09-19 22:46] LABS: PLATELET COUNT 239 10^3/uL (150-400)
[2017-09-19 23:46] VITALS: BP 117/67; PULSE 95; RESP 16; TEMP 97.7; O2SAT 95
== END 2017-09-20 00:25 | disposition home or self-care (01) ==
DX: F41.9 Anxiety disorder, unspecified (principal); E86.9 Volume depletion, unspecified; E11.9 Type 2 diabetes mellitus without complications
CPT/HCPCS: 96374; J2060

== ENCOUNTER 2018-01-07 09:52 | Emergency (ER) | payer OTHER ==
--- NOTE | 2018-01-07 10:10 | CPEKG ---
Heart Rate: 92 RR Interval: 652 P-R Interval: 164 QRSD Interval: 96 QT Interval: 360 QTC Interval: 446 P Zapata: 40 QRS Zapata: 92 T Wave Zap[place]: 38 EKG Severity - OTHERWISE NORMAL ECG - EKG Impression: SINUS RHYTHM EKG Impression: BORDERLINE RIGHT AXIS DEVIATION Electronically Signed By: Mariangel Campbell 07-Jan-2018 15:04:25
[2018-01-07] MEDS ORDERED: ONDANSETRON 4 MG/2 ML VIAL IVP ONE (10:16)
[2018-01-07] MEDS ORDERED: ONDANSETRON 4 MG/2 ML VIAL ONE (10:18)
[2018-01-07 11:02] LABS: PLATELET COUNT 239 10^3/uL (150-400)
--- NOTE | 2018-01-07 11:04 | EDPHY ---
H & P Stated Complaint: Heart palpitaions on and off for 1 month, - general malaise Time Seen by Provider: 01/07/18 11:03 HPI/ROS: CHIEF COMPLAINT: "The heart palpitates too much" HISTORY OF PRESENT ILLNESS: The patient is a Vincentian-speaking 47 y/o female with diabetes and anxiety complaining of waxing and waning heart palpitations for the last month. Symptoms are worse at night and she has the associated sensation of a rapid heart rate, but she has never tried to measure her pulse. She denies pain and says "it just beats and I feel a desperation" in her neck. She had some associated dyspnea last night and nausea today. She was evaluated at the clinic for these symptoms last week and was told her EKG was okay. They scheduled her for a follow up appointment at the end of the month. She has previously been prescribed Xanax and BuSpar for anxiety/stress and took these last night for symptoms without improvement. No recent illness or trauma. She denies caffeine use. No history of cardiac disease, respiratory disease, or thyroid disease. No known cardiac disease in primary relatives. Business Records Manager at bedside assisted with history. REVIEW OF SYSTEMS: A ten point review of systems was performed and is negative with the exception of the items mentioned in the HPI. Past medical history: Diabetes, gastritis, pancreatitis, anxiety (Xanax, BuSpar) Past surgical history: Cholecystectomy, sphincterotomy dysfunction, , eye surgery September 2017 Family history: Mother during childbirth. Father of a stroke. Social history: Vincentian-speaking. Nonsmoker. No alcohol use. Not employed, takes care of her grandchildren. General Appearance: Alert. Vital signs reviewed. HR 80. Eyes: Pupils equal and round, no conjunctival injection, no discharge. Anicteric. ENT, Mouth: Mucous membranes are moist, no oropharyngeal erythema or edema. Neck: No lymphadenopathy, supple. Respiratory: Lungs are clear to auscultation; no wheezes, rales, or rhonchi. Cardiovascular: Regular rate and rhythm; no murmur, rub, or gallop. Gastrointestinal: Abdomen is soft and nontender, no masses or organomegaly. Skin: Warm and dry, no rashes on exposed skin, normal color. Back: Nontender to palpation over the thoracolumbar spine. No CVAT. Extremities: No lower extremity edema, no calf tenderness or swelling. Neurological: Alert and oriented. Moving all four extremities easily and equally. Psychiatric: Normal affect. Source: Patient (I) - Personal History LMP (Females 10-55): Irregular Current Tetanus Diphtheria and Acellular Pertussis (TDAP): Yes Tetanus Vaccine Date: 2017 - Medical/Surgical History Hx Asthma: No Hx Chronic Respiratory Disease: No Hx Diabetes: Yes Hx Cardiac Disease: No Hx Renal Disease: No Hx Cirrhosis: No Hx Alcoholism: No Hx HIV/AIDS: No Hx Splenectomy or Spleen Trauma: No Other PMH: Cholecystectomy, sphincterotomy dysfunction, small bowel traction, gastritis, pancreatitis, - Social History Smoking Status: Never smoked Constitutional: Initial Vital Signs Temperature (C) 36.6 C 01/07/18 09:53 Heart Rate 90 01/07/18 09:53 Respiratory Rate 18 01/07/18 09:53 Blood Pressure 163/91 H 01/07/18 09:53 O2 Sat (%) 96 01/07/18 09:53 O2 Delivery Mode Room Air Allergies/Adverse Reactions: No Known Allergies Allergy (Verified 09/19/17 22:29) Home Medications: Medication Instructions Recorded GLIPIZIDE 07/26/17 Alprazolam 01/07/18 busPIRone [Buspar (*)] 01/07/18 Medical Decision Making ED Course/Re-evaluation: This is a 47 y/o female with diabetes and anxiety who presents with a 1-month history of waxing and waning palpitations and sensation of a rapid heart rate. Her exam is normal. Doubt ACS, but will evaluate for cardiac etiology with IV, labs, EKG. 4mg IV Zofran ordered for nausea. The 12 lead EKG was interpreted by myself. Sinus mechanism rate 92. See hard copy and/or "tracemaster" electronic copy for interpretation. Troponin negative. TSH ordered. Discussed results with patient. Her symptoms are mild at this time and she feels comfortable going home. Recommended follow up with cardiology for Holter monitor in the next week. She has been seen by her PCP within the month for the same problem and Holter monitor was recommended at that time also. She understands she can contact her clinic to help arrange this if needed. Return precautions discussed. She is comfortable with this plan. Differential Diagnosis: I considered a differential diagnosis that includes but is not limited to electrolyte abnormality, ACS, thyroid or other endocrine abnormality, dehydration, blood loss, fever. - Data Points Laboratory Results: Laboratory Results 01/07/18 10:10 01/07/18 10:10 Medications Given: Discontinued Medications Ondansetron HCl (Zofran) 4 mg IVP EDNOW ONE Stop: 01/07/18 10:17 Last Admin: 01/07/18 10:26 Dose: 4 mg Point of Care Test Results: Chemistry 01/07/18 10:18 POC Troponin I 0.00 ng/mL ng/mL (0.00-0.08) Departure - Departure Disposition: Home, Routine, Self-Care Clinical Impression: Palpitations Condition: Good Instructions: Heart Palpitations (ED) Additional Instructions: Follow up with a oil expeller operator to arrange for a Holter monitor test. Your primary care doctor at the clinic may be able to help set this up. Please call them today to ask for help with this. Jennifer de seguimiento con un cardiologo para hacer arreglos para un examen de monitor de Holter. White Dr. de cuidado primario en la clinica [facility] te puede ayudar a programar esto. Por favor llamarlos hoy para ayuda en esto. Jennifer manana a las 11:00am en [facility] con Crystal RAMOS en el lado [place]. Return to the ED for any worsening of condition. Regresar a la chantal de emergencia para cualquier empeoramiento de white condicion. Referrals: Yamilka Rg [Primary Care Provider] - As per Instructions Greg Mckenna MD [Medical Doctor] - As per Instructions Report Scribed for: Mariangel Campbell Report Scribed by: Lamar Nichols Date of Report: 01/07/18 Time of Report: 11:16 Physician Review and Approval Statement: 01/07/18 11:03 Portions of this note were transcribed by the front office medical assistant. I, Dr. Mariangel Campbell, personally performed the history, physical exam, and medical decision- making; and confirmed the accuracy of the information in the transcribed note.
[2018-01-07 12:18] VITALS: BP 121/74
== END 2018-01-07 12:17 | disposition home or self-care (01) ==
DX: R00.2 Palpitations (principal); E11.9 Type 2 diabetes mellitus without complications
CPT/HCPCS: 84484-PO; 96374; J2405

== ENCOUNTER 2018-04-11 00:15 | Emergency (ER) | payer OTHER ==
[2018-04-11] MEDS ORDERED: IBUPROFEN 200 MG TAB PO ONE (00:38)
[2018-04-11] MEDS ORDERED: LORazepam 1 MG TAB PO ONE (00:38)
[2018-04-11 00:49] LABS: PLATELET COUNT 210 10^3/uL (150-400)
--- NOTE | 2018-04-11 01:50 | EDPHY ---
H & P Stated Complaint: Chest pain, SOB Time Seen by Provider: 04/11/18 00:33 HPI/ROS: Chief Complaint: Chest pain, shortness of breath HPI: 47-year-old woman coming in complaining of chest pain and shortness of breath. She is gets the tightness in the center of her chest beneath her left breast. She has had in the past is been associated with anxiety. She does however have a history of diabetes. Family says she has increasingly anxious after her [id number] from cancer last week. She denies exertional chest pain. She got increasingly anxious this morning and then the pain got worse. It is not exertional. No fevers or chills. No cough. No nausea or vomiting. She has not taken any however anxiety medications. ROS: 10 systems were reviewed and were negative except those elements noted in the HPI. PMH: Diabetes, anxiety Social History: No smoking, no alcohol, no recreational drug use Family History: non-contributory Physical Exam: Gen: Awake, Alert, No Distress HEENT: Nose: no rhinorrhea Eyes: PERRLA, EOMI Mouth: Moist mucosa Neck: Supple, no JVD Chest: Patient has chest wall tenderness in her left anterior midclavicular line below her right breast reproducing her presenting complaint, lungs clear to auscultation Heart: S1, S2 normal, no murmur Abd: Soft, non-tender, no guarding Back: no CVA tenderness, no midline tenderness Ext: no edema, non-tender Skin: no rash Neuro: CN II-XII intact, Sensation grossly intact, Strength 5/5 in bilateral upper and lower extremities - Personal History LMP (Females 10-55): Unknown Current Tetanus/Diphtheria Vaccine: Yes Current Tetanus Diphtheria and Acellular Pertussis (TDAP): Yes Tetanus Vaccine Date: 2017 - Medical/Surgical History Hx Asthma: No Hx Chronic Respiratory Disease: No Hx Diabetes: Yes Hx Cardiac Disease: No Hx Renal Disease: No Hx Cirrhosis: No Hx Alcoholism: No Hx HIV/AIDS: No Hx Splenectomy or Spleen Trauma: No Other PMH: Cholecystectomy, sphincterotomy dysfunction, small bowel traction, gastritis, pancreatitis, - Social History Smoking Status: Never smoked Constitutional: Initial Vital Signs Temperature (C) 36.7 C 04/11/18 00:18 Heart Rate 105 H 04/11/18 00:18 Respiratory Rate 18 04/11/18 00:18 Blood Pressure 152/80 H 04/11/18 00:18 O2 Sat (%) 97 04/11/18 00:18 O2 Delivery Mode Room Air Allergies/Adverse Reactions: No Known Allergies Allergy (Verified 09/19/17 22:29) Home Medications: Medication Instructions Recorded GLIPIZIDE 07/26/17 Alprazolam 01/07/18 busPIRone [Buspar (*)] 01/07/18 Medical Decision Making - Diagnostics EKG Interpretation: ECG time 12:27 a.m., sinus rhythm with a rate of [62], normal axis, normal intervals, no acute ST or T-wave changes. Impression: Normal ECG. Imaging Results: Chest x-ray is negative per my interpretation. ED Course/Re-evaluation: 47-year-old woman presenting with atypical chest pain and anxiety. Her ECG is normal. Troponin is normal. She has had similar symptoms many times in the past. She has increasing stressors with the recent of her brother in law. She is feeling much better after ibuprofen and Ativan. I do not believe this represents any cardiac ischemia. She is asking to go home. Will discharge her with follow up with primary care physician. - Data Points Laboratory Results: Laboratory Results 04/11/18 00:33 04/11/18 00:33 04/11/18 04/11/18 04/11/18 00:45 00:33 00:33 WBC 8.42 10^3/uL 10^3/uL (3.80-9.50) RBC 5.16 10^6/uL 10^6/uL (4.18-5.33) Hgb 15.4 g/dL g/dL (12.6-16.3) Hct 44.4 % % (38.0-47.0) MCV 86.0 fL fL (81.5-99.8) MCH 29.8 pg pg (27.9-34.1) MCHC 34.7 g/dL g/dL (32.4-36.7) RDW 12.5 % % (11.5-15.2) Plt Count 210 10^3/uL 10^3/uL (150-400) MPV 11.8 fL H fL (8.7-11.7) Neut % (Auto) 31.8 % L % (39.3-74.2) Lymph % (Auto) 55.5 % H % (15.0-45.0) [place] % (Auto) 9.1 % % (4.5-13.0) Eos % (Auto) 2.7 % % (0.6-7.6) Baso % (Auto) 0.7 % % (0.3-1.7) Nucleat RBC Rel Count 0.0 % % (0.0-0.2) Absolute Neuts (auto) 2.67 10^3/uL 10^3/uL (1.70-6.50) Absolute Lymphs (auto) 4.67 10^3/uL H 10^3/uL (1.00-3.00) Absolute Monos (auto) 0.77 10^3/uL 10^3/uL (0.30-0.80) Absolute Eos (auto) 0.23 10^3/uL 10^3/uL (0.03-0.40) Absolute Basos (auto) 0.06 10^3/uL 10^3/uL (0.02-0.10) Absolute Nucleated RBC 0.00 10^3/uL 10^3/uL (0-0.01) Immature Gran % 0.2 % % (0.0-1.1) Immature Gran # 0.02 10^3/uL 10^3/uL (0.00-0.10) Sodium 139 mEq/L mEq/L (135-145) Potassium 4.0 mEq/L mEq/L (3.3-5.0) Chloride 105 mEq/L mEq/L (97-110) Carbon Dioxide 22 mEq/l mEq/l (22-31) Anion Gap 12 mEq/L mEq/L (8-16) BUN 11 mg/dL mg/dL (7-23) Creatinine 0.5 mg/dL L mg/dL (0.6-1.0) Estimated GFR > 60 Glucose 308 mg/dL H mg/dL (70-100) Calcium 10.9 mg/dL H mg/dL (8.5-10.4) Phosphorus 2.8 mg/dL mg/dL (2.5-4.5) POC Troponin I 0.00 ng/mL ng/mL (0.00-0.08) Medications Given: Discontinued Medications Ibuprofen (Motrin) 400 mg PO EDNOW ONE Stop: 04/11/18 00:39 Last Admin: 04/11/18 00:42 Dose: 400 mg Lorazepam (Ativan) 1 mg PO EDNOW ONE Stop: 04/11/18 00:39 Last Admin: 04/11/18 00:43 Dose: 1 mg Point of Care Test Results: Chemistry 04/11/18 00:45 POC Troponin I 0.00 ng/mL ng/mL (0.00-0.08) Departure - Departure Disposition: Home, Routine, Self-Care Clinical Impression: Chest wall pain, Anxiety Condition: Fair Instructions: Chest Wall Pain (ED), Anxiety (ED) Additional Instructions: Follow up with primary care physician in 2-3 days for further evaluation. Return to the emergency department for increasing chest pain, shortness of breath, fevers, chills, cough, or any other concerns. Referrals: [facility] [Other] - As per Instructions
[2018-04-11 02:09] VITALS: BP 145/87
--- NOTE | 2018-04-11 05:23 | CPEKG ---
Test Reason : OPEN Blood Pressure : / mmHG Vent. Rate : 090 BPM Atrial Rate : 092 BPM P-R Int : 155 ms QRS Dur : 100 ms QT Int : 368 ms P-R-T Axes : 038 082 050 degrees QTc Int : 451 ms Sinus rhythm Confirmed by Francisco Mireles ([id number]) on 04/11/2018 5:23:00 AM Referred By: Confirmed By:Francisco Mireles
== END 2018-04-11 02:09 | disposition home or self-care (01) ==
DX: R07.89 Other chest pain (principal); F41.8 Other specified anxiety disorders; E11.9 Type 2 diabetes mellitus without complications
CPT/HCPCS: 84484-PO